=== PATIENT | male | born 1970 | race Two or more races ===

== ENCOUNTER 2017-06-26 14:28 | Emergency (ER) | payer SELFPAY ==
[2017-06-26] MEDS ORDERED: ACETAMINOPHEN 325 MG TABLET PO ONE (14:43)
--- NOTE | 2017-06-26 17:28 | ER Document Report ---
HPI - HPI Patient complains to provider of: fever, aches, cough Pain Level: 4 Context: 47-year-old male non-smoker who has been sick since June 18 which is progressed from a sore throat runny nose to cough and fever for 5 days. The cough is really bad at night. Feels like he cannot get enough air out. No history of asthma or pneumonia. No travel outside the [place]. No chest pain, no nausea vomiting or diarrhea, no abdominal pain, no dysuria, no groin pain, no rash. Associated Symptoms: None Exacerbated by: Denies Relieved by: Denies - ROS ROS below otherwise negative: Yes Systems Reviewed and Negative: Yes All other systems reviewed and negative Past Medical History - General Information source: Patient - Social History Smoking Status: Never Smoker Frequency of alcohol use: None Drug Abuse: None Lives with: Family Family History: None - Past Medical History Cardiac Medical History: Reports: Hx Hypercholesterolemia - no meds Surgical Hx: Negative - Immunizations Hx Diphtheria, Pertussis, Tetanus Vaccination: Yes Vertical Provider Document - CONSTITUTIONAL Agree With Documented VS: Yes Exam Limitations: No Limitations - INFECTION CONTROL TRAVEL OUTSIDE OF THE [place] IN LAST 30 DAYS: No - HEENT HEENT: Pharyngeal Erythema. negative: Conjuctival Injection, Tympanic Membrane Red - NECK Neck: Supple. negative: Lymphadenopathy-Left, Lymphadenopathy-Right - RESPIRATORY Respiratory: No Respiratory Distress, Rales - few right base O2 Sat by Pulse Oximetry: 95 - CARDIOVASCULAR Cardiovascular: Regular Rate, Regular Rhythm Course - Re-evaluation Re-evalutation: 06/26/17 18:48 The nebulizer has helped him be able to breathe. 06/26/17 19:01 Although chest x-ray is negative per radiologist I hear some crackles in the right base so I am going to treat with an antibiotic and a inhaled bronchodilator. He does not have a primary care doctor so I told him to come back to the emergency room if he gets worse and I gave him a list of family practice doctors to follow-up with. repeat vitals are normal. 06/26/17 19:04 - Vital Signs Vital signs: Temp Pulse Resp BP Pulse Ox 102.9 F H 114 H 20 131/88 H 95 06/26/17 14:40 06/26/17 14:40 06/26/17 14:40 06/26/17 14:40 06/26/17 14:40 Discharge - Discharge Clinical Impression: Bronchitis Fever Qualifiers: Fever type: unspecified Qualified Code(s): R50.9 - Fever, unspecified Condition: Good Disposition: HOME, SELF-CARE Instructions: Acetaminophen, Azithromycin (OM), Bronchitis (ON LICENSE OF [facility]), Family Physicians / Practices Additional Instructions: Rest Plenty of fluids Use the inhaled Ventolin 2 puffs every 3 hours for the cough Return to the emergency room if worse List of family practice doctors given to you for follow-up Prescriptions: Azithromycin [Zithromax] 250 mg PO DAILY #6 tablet Forms: Return to Work
[2017-06-26] MEDS ORDERED: ALBUTEROL SULFATE 0.083% NEB 2.5 MG/3 ML AMPUL NEB ONE (17:47)
--- NOTE | 2017-06-26 18:48 | RADIOLOGY REPORT (SQ) ---
EXAM DESCRIPTION: CHEST PA/LAT COMPLETED DATE/TIME: 06/26/2017 6:41 pm REASON FOR STUDY: cough since 06-18 COMPARISON: 08/24/2009 EXAM PARAMETERS: NUMBER OF VIEWS: two views TECHNIQUE: Digital Frontal and Lateral radiographic views of the chest acquired. RADIATION DOSE: NA LIMITATIONS: none FINDINGS: LUNGS AND PLEURA: No opacities, masses or pneumothorax. No pleural effusion. MEDIASTINUM AND HILAR STRUCTURES: No masses or contour abnormalities. HEART AND VASCULAR STRUCTURES: Heart normal size. No evidence for failure. BONES: No acute findings. HARDWARE: None in the chest. OTHER: No other significant finding. IMPRESSION: NO SIGNIFICANT RADIOGRAPHIC FINDING IN THE CHEST. TECHNICAL DOCUMENTATION: JOB ID: [id number] [employer] All Rights Reserved
[2017-06-26 18:52] VITALS: BP 125/79
[2017-06-26] MEDS ORDERED: ALBUTEROL SULFATE HFA (90 MCG/PUFF) 8 GM MDI (1 MDI/ER DISP) IH PRN (19:04)
== END 2017-06-26 19:17 | disposition home or self-care (01) ==
LOC: ER 14:28
DX: J40 Bronchitis, not specified as acute or chronic (principal); R50.9 Fever, unspecified; M79.1 Myalgia; R05 Cough; J02.9 Acute pharyngitis, unspecified; R09.89 Other specified symptoms and signs involving the circulatory and respiratory systems
CPT/HCPCS: 94640; 99283; 71046; J3490